=== PATIENT | male | born 1960 | race Caucasian/White ===

== ENCOUNTER 2020-10-25 10:21 | Inpatient (IN) | payer BC ==
[~2020-10-25] VITALS: Ht 170.2 cm; Wt 83.7 kg
[~2020-10-25 10:21] MED LIST: BENTYL 20MG TAB20 MG PO; DILTIAZEM 24HR360 MG PO; LISINOPRIL-HCT1 EAC2 PO; LODINE CAP 300300 MG PO; ZOFRAN ODT 4 MG4 MG SL
[2020-10-25 11:51] LABS: HEMOGLOBIN 16.2 gm/dl (14.0-17.5); RED BLOOD COUNT 5.03 M/UL (4.20-5.50); WHITE BLOOD COUNT 14.8 K/UL (4.5-11.0)
[2020-10-25 13:18] LABS: BUN/CREATININE RATIO 34 (0-10)
[2020-10-25] MEDS ORDERED: DECADRON4 MG PO (13:48)
[2020-10-25] MEDS ORDERED: BACTRIM DS TAB1 EACH PO (13:48)
[2020-10-25] MEDS ORDERED: ADVIL200 MG PO (14:14)
[2020-10-26 04:46] LABS: RED BLOOD COUNT 4.64 M/UL (4.20-5.50)
[2020-10-26 05:23] LABS: BUN/CREATININE RATIO 42 (0-10)
[2020-10-27 05:26] LABS: HEMOGLOBIN 14.6 gm/dl (14.0-17.5); RED BLOOD COUNT 4.56 M/UL (4.20-5.50); WHITE BLOOD COUNT 15.7 K/UL (4.5-11.0)
[2020-10-27 05:38] LABS: BUN/CREATININE RATIO 38 (0-10)
[2020-10-28 13:04] LABS: HEMOGLOBIN 15.7 gm/dl (14.0-17.5); RED BLOOD COUNT 4.91 M/UL (4.20-5.50); WHITE BLOOD COUNT 15.5 K/UL (4.5-11.0)
[2020-10-28 13:26] LABS: BUN/CREATININE RATIO 40 (0-10)
[2020-10-29 02:41] LABS: HEMOGLOBIN 15.5 gm/dl (14.0-17.5); RED BLOOD COUNT 4.82 M/UL (4.20-5.50); WHITE BLOOD COUNT 15.7 K/UL (4.5-11.0)
[2020-10-29 03:02] LABS: BUN/CREATININE RATIO 38 (0-10)
[2020-10-30 04:31] LABS: WHITE BLOOD COUNT 15.6 K/UL (4.5-11.0)
[2020-10-30 05:04] LABS: BUN/CREATININE RATIO 43 (0-10)
[2020-10-31 03:15] LABS: HEMOGLOBIN 16.2 gm/dl (14.0-17.5); RED BLOOD COUNT 5.36 M/UL (4.20-5.50); WHITE BLOOD COUNT 18.8 K/UL (4.5-11.0)
[2020-10-31 03:43] LABS: BUN/CREATININE RATIO 43 (0-10)
[2020-11-01 03:31] LABS: HEMOGLOBIN 17.1 gm/dl (14.0-17.5); RED BLOOD COUNT 5.33 M/UL (4.20-5.50); WHITE BLOOD COUNT 18.9 K/UL (4.5-11.0)
[2020-11-01 03:52] LABS: BUN/CREATININE RATIO 49 (0-10)
[2020-11-02 05:27] LABS: HEMOGLOBIN 17.2 gm/dl (14.0-17.5); RED BLOOD COUNT 5.31 M/UL (4.20-5.50)
[2020-11-02 05:58] LABS: BUN/CREATININE RATIO 53 (0-10)
[2020-11-03 05:25] LABS: HEMOGLOBIN 16.4 gm/dl (14.0-17.5); RED BLOOD COUNT 5.1 M/UL (4.20-5.50); WHITE BLOOD COUNT 22.9 K/UL (4.5-11.0)
[2020-11-03 05:26] LABS: BUN/CREATININE RATIO 54 (0-10)
[2020-11-04 05:13] LABS: HEMOGLOBIN 16.8 gm/dl (14.0-17.5); RED BLOOD COUNT 5.22 M/UL (4.20-5.50); WHITE BLOOD COUNT 23.3 K/UL (4.5-11.0)
[2020-11-04 05:31] LABS: BUN/CREATININE RATIO 56 (0-10)
[2020-11-05 00:54] LABS: HEMOGLOBIN 18.3 gm/dl (14.0-17.5); RED BLOOD COUNT 5.71 M/UL (4.20-5.50); WHITE BLOOD COUNT 26.1 K/UL (4.5-11.0)
[2020-11-05 02:05] LABS: BUN/CREATININE RATIO 44 (0-10)
--- NOTE | 2020-11-06 04:14 | NUR ---
0300- PT TEMP 96.2 ATTEMPTED TO PUT WARM BLANKET ON PT, PT REFUSED AND STATED THEY WERE HOT. ADVISED PT THAT THEIR TEMP WAS LOW, PT STATED THAT WAS NORMAL FOR THEM.
--- NOTE | 2020-11-06 06:07 | NUR ---
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 PT WAS NOT RESPONDING CALLED FOR ASSISTANCE, MOVED PT BACK UP INTO BED PT BEGAN TO RESPOND AND FOLLOW COMMANDS, O2 SAT DROPPED, PT WAS PLACED ON BIPAP. VS BEGAN TO STABILIZE. WILL CONTINUE TO MONITOR.
[2020-11-06 07:03] LABS: HEMOGLOBIN 18.2 gm/dl (14.0-17.5); RED BLOOD COUNT 5.6 M/UL (4.20-5.50); WHITE BLOOD COUNT 23.6 K/UL (4.5-11.0)
[2020-11-07 05:27] LABS: BUN/CREATININE RATIO 51 (0-10)
[2020-11-08 05:11] LABS: WHITE BLOOD COUNT 18.7 K/UL (4.5-11.0)
[2020-11-08 05:17] LABS: HEMOGLOBIN 14.6 gm/dl (14.0-17.5); RED BLOOD COUNT 4.56 M/UL (4.20-5.50)
[2020-11-08 05:44] LABS: BUN/CREATININE RATIO 44 (0-10)
[2020-11-09 05:41] LABS: BUN/CREATININE RATIO 45 (0-10)
[2020-11-10 05:57] LABS: BUN/CREATININE RATIO 52 (0-10)
[2020-11-10 07:01] LABS: HEMOGLOBIN 14.6 gm/dl (14.0-17.5); RED BLOOD COUNT 4.52 M/UL (4.20-5.50); WHITE BLOOD COUNT 15.4 K/UL (4.5-11.0)
[2020-11-10 14:01] LABS: HEMOGLOBIN 13.3 gm/dl (14.0-17.5); RED BLOOD COUNT 4.17 M/UL (4.20-5.50); WHITE BLOOD COUNT 16.1 K/UL (4.5-11.0)
[2020-11-10 14:33] LABS: BUN/CREATININE RATIO 38 (0-10)
[2020-11-11 05:31] LABS: HEMOGLOBIN 14.2 gm/dl (14.0-17.5); RED BLOOD COUNT 4.56 M/UL (4.20-5.50)
[2020-11-11 05:32] LABS: WHITE BLOOD COUNT 22.8 K/UL (4.5-11.0)
[2020-11-12 05:39] LABS: HEMOGLOBIN 12.7 gm/dl (14.0-17.5)
[2020-11-12 05:42] LABS: RED BLOOD COUNT 4.07 M/UL (4.20-5.50); WHITE BLOOD COUNT 16.1 K/UL (4.5-11.0)
[2020-11-13 05:58] LABS: RED BLOOD COUNT 3.63 M/UL (4.20-5.50); WHITE BLOOD COUNT 9.3 K/UL (4.5-11.0)
[2020-11-14 05:46] LABS: HEMOGLOBIN 12.3 gm/dl (14.0-17.5); RED BLOOD COUNT 4.05 M/UL (4.20-5.50); WHITE BLOOD COUNT 10.2 K/UL (4.5-11.0)
[2020-11-15 05:09] LABS: HEMOGLOBIN 12.4 gm/dl (14.0-17.5); RED BLOOD COUNT 3.98 M/UL (4.20-5.50)
[2020-11-15 05:10] LABS: WHITE BLOOD COUNT 12.8 K/UL (4.5-11.0)
--- NOTE | 2020-11-15 10:07 | NUR ---
LATE ENTRY 11/10/20 1004 BED ALARM SOUNDING NURSING TO BEDSIDE IMMEDIATELY. UNABLE TO VISUALIZE PT IN BED UPON DONNING PPE PT NOTED IN THE FLOOR FACE DOWN, NOTED TO BE OFF THE MONITOR UNABLE TO PALPATE PULSE, CPR STARTED, CODE BLUE CALLED SEE CODE SHEET.
[2020-11-16 04:38] LABS: HEMOGLOBIN 12.8 gm/dl (14.0-17.5); RED BLOOD COUNT 4.14 M/UL (4.20-5.50)
[2020-11-16 04:49] LABS: WHITE BLOOD COUNT 17.1 K/UL (4.5-11.0)
[2020-11-16 14:14] LABS: HEPARIN INDUCED PLATELET AB 0.053 OD (0.000-0.400)
[2020-11-17 04:26] LABS: HEMOGLOBIN 12.7 gm/dl (14.0-17.5); RED BLOOD COUNT 3.96 M/UL (4.20-5.50); WHITE BLOOD COUNT 15.9 K/UL (4.5-11.0)
[2020-11-18 04:59] LABS: HEMOGLOBIN 12.3 gm/dl (14.0-17.5); RED BLOOD COUNT 3.85 M/UL (4.20-5.50); WHITE BLOOD COUNT 15.2 K/UL (4.5-11.0)
[2020-11-19 04:31] LABS: HEMOGLOBIN 12.3 gm/dl (14.0-17.5); RED BLOOD COUNT 3.86 M/UL (4.20-5.50); WHITE BLOOD COUNT 15.3 K/UL (4.5-11.0)
[2020-11-20 05:07] LABS: HEMOGLOBIN 10.5 gm/dl (14.0-17.5); WHITE BLOOD COUNT 12.4 K/UL (4.5-11.0)
[2020-11-20 05:17] LABS: RED BLOOD COUNT 3.29 M/UL (4.20-5.50)
[2020-11-20 13:27] LABS: BODY FLUID SOURCE PERITONEAL
[2020-11-20 13:28] LABS: RBC (AUTOMATED) 5800 (0-100000); WBC (AUTOMATED) 180 (0-500)
[2020-11-20 13:50] LABS: AMYLASE, BODY FLUID 13 U/L; TOTAL PROTEIN, BODY FLUID 0.2 gm/dL
[2020-11-21 06:08] LABS: HEMOGLOBIN 8.9 gm/dl (14.0-17.5); WHITE BLOOD COUNT 10.6 K/UL (4.5-11.0)
[2020-11-21 06:16] LABS: RED BLOOD COUNT 2.83 M/UL (4.20-5.50)
[2020-11-21 21:47] LABS: BUN/CREATININE RATIO 61 (0-10)
[2020-11-22 04:10] LABS: HEMOGLOBIN 10.2 gm/dl (14.0-17.5)
[2020-11-22 04:30] LABS: RED BLOOD COUNT 3.2 M/UL (4.20-5.50); WHITE BLOOD COUNT 14.5 K/UL (4.5-11.0)
[2020-11-22 05:03] LABS: BUN/CREATININE RATIO 65 (0-10)
[2020-11-23 07:51] LABS: HEMOGLOBIN 10.6 gm/dl (14.0-17.5); RED BLOOD COUNT 3.32 M/UL (4.20-5.50)
[2020-11-23 07:54] LABS: WHITE BLOOD COUNT 20.7 K/UL (4.5-11.0)
--- NOTE | 2020-11-24 17:33 | NUR ---
1554 PT NOT BREATHING NO CHEST RISE OR FALL. NO CORNEAL REFLEXES. DID NOT AUSCULATE ANY HR. . NO SPONTANEOUS RESPIRATIONS OR HEART TONES PT WAS PRONOUNCED AT 1545
== END 2020-11-24 18:25 | disposition expired | DRG 207 ==
LOC: ER1 10:21 → CDU 13:43 → 2 EAST 13:43 → PROG CARE 13:43 → 2 EAST 11-01 11:50
PROVIDERS: Internal Medicine; Internal Medicine Infectious Disease; Internal Medicine Nephrology; Internal Medicine Pulmonary Disease; Physician Assistant; ADMIT Internal Medicine
PROC: 8E0ZXY6 Isolation (ICD-10-PCS; 2020-10-25)
PROC: XW033E5 Introduction of Remdesivir Anti-infective into Peripheral Vein, Percutaneous Approach, New Technology Group 5 (ICD-10-PCS; 2020-10-26)
PROC: 3E0333Z Introduction of Anti-inflammatory into Peripheral Vein, Percutaneous Approach (ICD-10-PCS; 2020-10-26)
PROC: XW033H5 Introduction of Tocilizumab into Peripheral Vein, Percutaneous Approach, New Technology Group 5 (ICD-10-PCS; 2020-10-26)
PROC: 5A09557 Assistance with Respiratory Ventilation, Greater than 96 Consecutive Hours, Continuous Positive Airway Pressure (ICD-10-PCS; 2020-10-26)
PROC: XW13325 Transfusion of Convalescent Plasma (Nonautologous) into Peripheral Vein, Percutaneous Approach, New Technology Group 5 (ICD-10-PCS; 2020-10-27)
PROC: 3E033XZ Introduction of Vasopressor into Peripheral Vein, Percutaneous Approach (ICD-10-PCS; 2020-11-04)
PROC: B24BZZZ Ultrasonography of Heart with Aorta (ICD-10-PCS; 2020-11-06)
PROC: 5A1955Z Respiratory Ventilation, Greater than 96 Consecutive Hours (ICD-10-PCS; principal; 2020-11-10)
PROC: 0BH18EZ Insertion of Endotracheal Airway into Trachea, Via Natural or Artificial Opening Endoscopic (ICD-10-PCS; 2020-11-10)
PROC: 5A12012 Performance of Cardiac Output, Single, Manual (ICD-10-PCS; 2020-11-13)
PROC: 0W9G3ZX Drainage of Peritoneal Cavity, Percutaneous Approach, Diagnostic (ICD-10-PCS; 2020-11-20)
PROC: 0W9G3ZZ Drainage of Peritoneal Cavity, Percutaneous Approach (ICD-10-PCS; 2020-11-20)
DX: U07.1 COVID-19 (principal); J12.82 Pneumonia due to coronavirus disease 2019; J80 Acute respiratory distress syndrome; G93.41 Metabolic encephalopathy; J15.9 Unspecified bacterial pneumonia; G93.6 Cerebral edema; N17.0 Acute kidney failure with tubular necrosis; A41.9 Sepsis, unspecified organism; R65.21 Severe sepsis with septic shock; E87.1 Hypo-osmolality and hyponatremia; R18.8 Other ascites; I62.9 Nontraumatic intracranial hemorrhage, unspecified; E87.0 Hyperosmolality and hypernatremia; E87.4 Mixed disorder of acid-base balance; Z66 Do not resuscitate; K59.00 Constipation, unspecified; F41.9 Anxiety disorder, unspecified; H10.9 Unspecified conjunctivitis; R57.1 Hypovolemic shock; I07.1 Rheumatic tricuspid insufficiency; I12.9 Hypertensive chronic kidney disease with stage 1 through stage 4 chronic kidney disease, or unspecified chronic kidney disease; N18.9 Chronic kidney disease, unspecified; E11.22 Type 2 diabetes mellitus with diabetic chronic kidney disease; E11.65 Type 2 diabetes mellitus with hyperglycemia; G89.29 Other chronic pain; M54.9 Dorsalgia, unspecified; D69.6 Thrombocytopenia, unspecified; G40.909 Epilepsy, unspecified, not intractable, without status epilepticus; E87.8 Other disorders of electrolyte and fluid balance, not elsewhere classified; I46.9 Cardiac arrest, cause unspecified; I44.30 Unspecified atrioventricular block; J98.2 Interstitial emphysema; J01.90 Acute sinusitis, unspecified; E86.0 Dehydration; L89.322 Pressure ulcer of left buttock, stage 2; L89.312 Pressure ulcer of right buttock, stage 2; Z79.82 Long term (current) use of aspirin; Z79.4 Long term (current) use of insulin; Z88.0 Allergy status to penicillin; Z84.89 Family history of other specified conditions; Z79.1 Long term (current) use of non-steroidal anti-inflammatories (NSAID); Z91.041 Radiographic dye allergy status
CPT/HCPCS: ECHO; 31500; 36415; 36600; 70450; 71045; 71250; 74018; 76705; 80048; 80053; 82140; 82150; 82550; 82553; 82803; 82962; 83036; 83605; 83690; 83735; 83874; 83880; 84100; 84132; 84157; 84295; 84484; 84550; 85025; 85027; 85379; 85384; 85610; 85730; 86140; 86900; 86901; 86927; 87040; 87070; 87086; 87205; 89051; 92950; 93005; 93306; 93971; 94003; 94640; 94660; 94760; 95819; 99285; C1729; C1751; J0360; J0780; J1100; J1120; J1205; J1650; J1940; J1956; J2020; J2060; J2185; J2250; J2270; J2405; J2550; J2704; J2765; J3010; J7030; J7040; J7042; J7050; J7070; J7131; P9047; Q9967